=== PATIENT | male | born 1990 | race Caucasian/White ===

== ENCOUNTER 2017-09-20 19:00 | Emergency (ER) | payer OTHER ==
[2017-09-20 19:09] VITALS: BP 135/78
[2017-09-20] MEDS ORDERED: CYCLOBENZAPRINE 10 MG Prepack 2 PO PRN (19:47)
[2017-09-20] MEDS ORDERED: HYDROcod/ACET 5/325 Prepack 6 PO STA (19:47)
--- NOTE | 2017-09-20 19:49 | ED Physician Documentation ---
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 There is no weakness, numbness, or tingling of any extremity and no headache.) Review of Systems Constitutional: denies: Fever, Chills Cardiac: denies: Chest pain / pressure, Palpitations Respiratory: denies: Dyspnea, Cough PD PAST MEDICAL HISTORY - Past Medical History Past Medical History: No - Past Surgical History Past Surgical History: No - Present Medications Home Medications: Ambulatory Orders Medication Instructions Recorded Confirmed Cyclobenzaprine [Flexeril] 10 mg PO TID PRN #20 tablet 09/20/17 HYDROcod/ACETAM 5/325 [[place] 5/325] 1 - 2 ea PO Q6H PRN #15 tablet 09/20/17 - Allergies Allergies/Adverse Reactions: Allergies Allergy/AdvReac Type Severity Reaction Status Date / Time No Known Drug Allergies Allergy Verified 09/20/17 19:08 - Social History Does the pt smoke?: Yes Smoking Status: Current every day smoker Does the pt drink ETOH?: Yes ETOH Use: Liquor Does the pt have substance abuse?: No - Immunizations Immunizations are current?: Yes - POLST Patient has POLST: No PD ED PE NORMAL - Vitals Vital signs reviewed: Yes - General General: Alert and oriented X 3, No acute distress - HEENT HEENT: PERRL, EOMI - Neck Neck: No bony TTP, Other (TTP over left SCM and pain with left neck rotation.) - Cardiac Cardiac: RRR, No murmur - Respiratory Respiratory: No respiratory distress, Clear bilaterally - Abdomen Abdomen: Non tender - Back Back: No spinal TTP, Other (TTP Left parathoracic muscles) - Neuro Neuro: Alert and oriented X 3, Normal speech - Psych Psych: Normal mood, Normal affect Results - Vitals Vitals: Vital Signs - 24 hr 09/20/17 19:05 Temperature 37.7 C H Heart Rate 80 Respiratory 18 Rate Blood Pressure 135/78 H O2 Saturation 100 Oxygen O2 Source Room air Departure - Departure Disposition: 01 Home, Self Care Clinical Impression: Neck muscle strain Qualifiers: Encounter type: initial encounter Qualified Code(s): S16.1XXA - Strain of muscle, fascia and tendon at neck level, initial encounter Back strain Qualifiers: Encounter type: initial encounter Qualified Code(s): S39.012A - Strain of muscle, fascia and tendon of lower back, initial encounter Condition: Good Record reviewed to determine appropriate education?: Yes Instructions: ED Neck Back Pain General Prescriptions: Cyclobenzaprine [Flexeril] 10 mg PO TID PRN #20 tablet PRN Reason: Pain HYDROcod/ACETAM 5/325 [[place] 5/325] 1 - 2 ea PO Q6H PRN #15 tablet PRN Reason: Pain Comments: Call your doctor to arrange a follow-up appointment, make the next available appointment. In the interim, return anytime if worse or if new symptoms develop. Your blood pressure was elevated today on check into the emergency department. This does not mean that you have hypertension, it is a common phenomenon to come to the emergency department and have elevated blood pressure. I recommend that you see your primary care physician within the week to have it rechecked when you are feeling better. Do not drink or drive while taking narcotic pain medication. Note that many narcotic pain relievers also contain Tylenol/acetaminophen. Please ensure that your total dose of acetaminophen from all sources does not exceed 3 g (3000 mg) per day. You may get constipated while on this medication. Take a stool softener such as Colace twice a day while you are on it. Also add an [id number] laxative such as senna or MiraLAX on any day that you do not have a bowel movement. If you received a narcotic pain medication or sedative while in the emergency department, do not drive for the next 24 hours.
== END 2017-09-20 20:04 | disposition home or self-care (01) ==
LOC: ED 19:00
DX: S16.1XXA Strain of muscle, fascia and tendon at neck level, initial encounter (principal); S39.012A Strain of muscle, fascia and tendon of lower back, initial encounter; X50.0XXA Overexertion from strenuous movement or load, initial encounter; Y92.59 Other trade areas as the place of occurrence of the external cause; Y99.0 Civilian activity done for income or pay; R03.0 Elevated blood-pressure reading, without diagnosis of hypertension; F17.200 Nicotine dependence, unspecified, uncomplicated
CPT/HCPCS: 99283

== ENCOUNTER 2017-10-08 19:41 | Emergency (ER) | payer OTHER ==
--- NOTE | 2017-10-08 21:13 | ED Physician Documentation ---
PD HPI UPPER EXT INJURY - Stated complaint Stated Complaint: L SHOULDER PX - Chief complaint Chief Complaint: Ext Problem - History obtained from History obtained from: Patient - History of Present Illness Location: Left, Shoulder Type of injury: Other (denies injury) Timing - onset: How many weeks ago (3) Timing - details: Gradual onset Associated symptoms: No: Weakness, Numbness, Tingling, Swelling, Discolored Recently seen: Emergency Dept - Additonal information Additional information: c/o left shoulder pain that started three weeks ago after work-related strenuous repetitive activity. at that time he was T+R from this ED, subsequently seen in f/u by PMD. he says symptoms had steadily improved until yesterday when he awoke to find they had suddenly returned, manifest as left upper back pain that is worse with movement of left shoulder. He does not recall recent unusual strenuous or repetitive activity. He called PMD earlier today and soonest appointment is end of next week. He is out if the medications prescribed on last visit. Review of Systems Respiratory: denies: Dyspnea Musculoskeletal: reports: Back pain (left upper parathoracic). denies: Neck pain, Extremity pain, Joint pain (pain is exacerbated with movement of left shoulder, but no shoulder pain per se), Extremity swelling Neurologic: denies: Focal weakness, Numbness PD PAST MEDICAL HISTORY - Past Medical History Past Medical History: Yes Other Past Medical History: Torn rotator cuff L side; Torn tendon L shoulder - Past Surgical History Past Surgical History: No - Present Medications Home Medications: Ambulatory Orders Medication Instructions Recorded Confirmed Cyclobenzaprine [Flexeril] 10 mg PO TID PRN #20 tablet 10/08/17 HYDROcod/ACETAM 5/325 [[place] 5/325] 1 - 2 ea PO Q6H PRN #15 tablet 10/08/17 Ibuprofen 400 mg PO .FREQ 10/08/17 10/08/17 - Allergies Allergies/Adverse Reactions: Allergies Allergy/AdvReac Type Severity Reaction Status Date / Time No Known Drug Allergies Allergy Verified 10/08/17 19:49 - Social History Does the pt smoke?: Yes Smoking Status: Current every day smoker Does the pt drink ETOH?: Yes Does the pt have substance abuse?: No - Immunizations Immunizations are current?: Yes - POLST Patient has POLST: No PD ED PE NORMAL - Vitals Vital signs reviewed: Yes - General General: Alert and oriented X 3, No acute distress, Well developed/nourished - Neck Neck: Supple, no meningeal sign, No bony TTP - Respiratory Respiratory: No respiratory distress, Clear bilaterally - Back Back: No spinal TTP, Other (mild TTP left upper parathoracic region without bony tenderness) - Derm Derm: No rash - Extremities Extremities: No tenderness to palpate, Normal ROM s pain - Neuro Neuro: No motor deficit, No sensory deficit Results - Vitals Vitals: Oxygen O2 Source Room air PD MEDICAL DECISION MAKING - ED course Complexity details: reviewed old records, considered differential, d/w patient Departure - Departure Disposition: Home, Self Care Clinical Impression: Left shoulder strain Qualifiers: Encounter type: initial encounter Qualified Code(s): S46.912A - Strain of unspecified muscle, fascia and tendon at shoulder and upper arm level, left arm , initial encounter Condition: Good Instructions: ED Shoulder Pain [facility] Prescriptions: Cyclobenzaprine [Flexeril] 10 mg PO TID PRN #20 tablet PRN Reason: Spasms HYDROcod/ACETAM 5/325 [[place] 5/325] 1 - 2 ea PO Q6H PRN #15 tablet PRN Reason: Pain Comments: Follow up with your primary care physician as scheduled next week Discharge Date/Time: 10/08/17 21:55
[2017-10-08] MEDS ORDERED: HYDROcod/ACET 5/325 Prepack 6 PO STA (21:33)
[2017-10-08] MEDS ORDERED: CYCLOBENZAPRINE 10 MG Prepack 2 PO STA (21:33)
[2017-10-08 21:55] VITALS: BP 131/76
== END 2017-10-08 21:55 | disposition home or self-care (01) ==
LOC: ED 19:41
DX: S46.912A Strain of unspecified muscle, fascia and tendon at shoulder and upper arm level, left arm, initial encounter (principal); F17.200 Nicotine dependence, unspecified, uncomplicated; X50.9XXA Other and unspecified overexertion or strenuous movements or postures, initial encounter; Y99.0 Civilian activity done for income or pay
CPT/HCPCS: 99283

== ENCOUNTER 2017-10-21 17:32 | Emergency (ER) | payer OTHER ==
--- NOTE | 2017-10-21 18:59 | ED Physician Documentation ---
PD HPI NECK PAIN - Stated complaint Stated Complaint: LT SHOUL/NECK PX - Chief complaint Chief Complaint: Ext Problem - History obtained from History obtained from: Patient - History of Present Illness Timing - onset: How many weeks ago (6) Timing - duration: Weeks (6) Timing - details: Gradual onset, Still present Location: Mid, Lower, Left (left side of neck and left suprascapular area. Mostly hurting in shoulder then radiated to trapezius area of neck. Hurts with shoulder ROM. Radiates to left arm.) Quality: Pain, Aching Associated symptoms: No: Weakness, Numbness Improves with: Rest Worsened by: Movement (mostly of shoulder, some of neck.) Contributing factors: Lifting. No: Trauma Similar symptoms before: Has not had sx before Recently seen: Not recently seen (did not have insurance; just got new insurance and has first appt with PMD next week.) Review of Systems Constitutional: denies: Fever, Chills Skin: denies: Rash, Lesions Neurologic: denies: Focal weakness, Numbness PD PAST MEDICAL HISTORY - Past Medical History Past Medical History: Yes Psych: Depression, Anxiety, Post traumatic stress disorder - Past Surgical History Past Surgical History: No - Present Medications Home Medications: Ambulatory Orders Medication Instructions Recorded Confirmed Ibuprofen 400 mg PO .FREQ 10/08/17 10/08/17 Dexamethasone [Decadron] 4 mg PO DAILY #5 tablet 10/21/17 HYDROcod/ACETAM 5/325 [[place] 5/325] 1 tab PO Q6H PRN #25 tablet 10/21/17 Methocarbamol [Robaxin] 500 mg PO Q6H PRN #25 tablet 10/21/17 - Allergies Allergies/Adverse Reactions: Allergies Allergy/AdvReac Type Severity Reaction Status Date / Time No Known Drug Allergies Allergy Verified 10/21/17 17:53 - Social History Does the pt smoke?: Yes Smoking Status: Current every day smoker Does the pt drink ETOH?: Yes Does the pt have substance abuse?: No - Immunizations Immunizations are current?: Yes - POLST Patient has POLST: No PD ED PE NORMAL - Vitals Vital signs reviewed: Yes - General General: Alert and oriented X 3, No acute distress, Well developed/nourished - Neck Neck: Supple, no meningeal sign, No bony TTP, No adenopathy - Cardiac Cardiac: RRR, No murmur - Respiratory Respiratory: Clear bilaterally - Derm Derm: Normal color, Warm and dry - Neuro Neuro: Alert and oriented X 3, No motor deficit, No sensory deficit, Normal speech Results - Vitals Vitals: Oxygen O2 Source Room air PD MEDICAL DECISION MAKING - ED course Complexity details: considered differential, d/w patient Departure - Departure Disposition: 01 Home, Self Care Clinical Impression: Neck pain, acute, Cervical radicular pain Condition: Stable Record reviewed to determine appropriate education?: Yes Instructions: ED Neck Back Pain General, ED Cervical Radiculopathy Follow-Up: Quin Huizar MD [Primary Care Provider] - Todd Fierro MD [Provider Admit Priv/Credential] - Prescriptions: Dexamethasone [Decadron] 4 mg PO DAILY #5 tablet HYDROcod/ACETAM 5/325 [[place] 5/325] 1 tab PO Q6H PRN #25 tablet PRN Reason: Pain Methocarbamol [Robaxin] 500 mg PO Q6H PRN #25 tablet PRN Reason: Spasms Comments: Reduce stress on the shoulder without heavy lifting, push pull, overhead reaching. Use a sling that you have as needed for comfort. Continue the ibuprofen to 3 times a day. Add Decadron daily for 5 days which is a stronger anti-inflammatory. Robaxin as a muscle relaxant for spasms and stiffness. Add hydrocodone if needed for worse pain. Follow-up with your new primary care as scheduled. You could also call the orthopedics office and see if they would take referral from the ER if they need it through the primary care. Discharge Date/Time: 10/21/17 20:28
[2017-10-21] MEDS ORDERED: METHOCARBAMOL 500 MG TABLET PO STA (19:35)
[2017-10-21] MEDS ORDERED: HYDROcod/ACET 5/325 Prepack 6 PO STA (19:35)
[2017-10-21] MEDS ORDERED: ACETAMINOPHEN 325 MG TABLET PO STA (19:35)
[2017-10-21] MEDS ORDERED: DEXAMETHASONE 10 MG/ML VIAL PO STA (19:35)
[2017-10-21 20:08] VITALS: BP 122/78
== END 2017-10-21 20:28 | disposition home or self-care (01) ==
LOC: ED 17:32
DX: M54.2 Cervicalgia (principal); M54.12 Radiculopathy, cervical region; F17.200 Nicotine dependence, unspecified, uncomplicated
CPT/HCPCS: 99283; A9270

== ENCOUNTER 2018-01-09 11:33 | Outpatient (CLI) | payer OTHER ==
--- NOTE | 2018-01-10 10:22 | MRI Report ---
EXAM: MRI CERVICAL SPINE WITHOUT CONTRAST EXAM DATE: 01/09/2018 12:11 PM. CLINICAL HISTORY: Chronic left-sided neck, shoulder and arm pain. COMPARISONS: None. TECHNIQUE: Multiplanar, multisequence T1-weighted and fluid-sensitive sequences of the cervical spine without contrast. Other: None. FINDINGS: Neurologic Structures: The visualized posterior fossa structures are unremarkable. No signal abnormal ity in the visualized spinal cord. Alignment: Normal cervical vertebral body alignment. No spondylolisthesis. Bone Marrow: No acute fracture. No destructive bone lesion. Small fatty endplate changes at the infer ior aspect of C2 and C3. Chronic appearing Schmorl's node at the C3 inferior endplate. Interspace Levels/Facets: C1-C2: Unremarkable. C2-C3: Unremarkable. C3-C4: Annular disk bulge. Broad-based bilateral paracentral and subarticular zone disk protrusions a nd osteophyte formation resulting in mild bilateral subarticular zone stenosis. C4-C5: Unremarkable. C5-C6: Unremarkable. C6-C7: Unremarkable. C7-T1: Unremarkable. Musculature: Normal. No edema or fatty atrophy. Other: The paravertebral and prevertebral soft tissues are normal. IMPRESSION: 1. C3-C4 small disk protrusions and osteophyte formation resulting in mild bilateral subarticular zon e stenosis. [facility] Referring Provider Line: [phone] SITE ID: [id number]
== END 2018-01-09 11:34 | disposition home or self-care (01) ==
LOC: DI 11:33
PROVIDERS: ATTEND Orthopaedic Surgery
DX: M50.21 Other cervical disc displacement, high cervical region (principal); M25.78 Osteophyte, vertebrae
CPT/HCPCS: 72141

== ENCOUNTER 2018-02-14 19:48 | Emergency (ER) | payer OTHER ==
--- NOTE | 2018-02-14 20:19 | ED Physician Documentation ---
PD HPI ABD PAIN - Stated complaint Stated Complaint: MALE - Chief complaint Chief Complaint: Abd Pain - History obtained from History obtained from: Patient - History of Present Illness Timing - onset: Other (He had a GI illness over the last couple days with vomiting and diarrhea but starting yesterday had rectal pain. He has a remote history of hemorrhoids and he has had slight rectal bleeding.) Review of Systems Constitutional: reports: Reviewed and negative Cardiac: reports: Reviewed and negative Respiratory: reports: Reviewed and negative PD PAST MEDICAL HISTORY - Past Medical History GI: Hemorrhoids Psych: Depression, Anxiety, Post traumatic stress disorder - Past Surgical History Past Surgical History: No - Present Medications Home Medications: Ambulatory Orders Medication Instructions Recorded Confirmed Ibuprofen 400 mg PO .FREQ 10/08/17 10/08/17 HYDROcod/ACETAM 5/325 [[place] 5/325] 1 - 2 ea PO Q6H PRN #7 tablet 02/14/18 Hydrocortisone Acetate [Anucort-Hc] 25 mg RC QID #30 supp.rect 02/14/18 - Allergies Allergies/Adverse Reactions: Allergies Allergy/AdvReac Type Severity Reaction Status Date / Time No Known Drug Allergies Allergy Verified 02/14/18 20:01 - Social History Does the pt smoke?: Yes Smoking Status: Current every day smoker Does the pt drink ETOH?: Yes Does the pt have substance abuse?: No - Immunizations Immunizations are current?: Yes - POLST Patient has POLST: No PD ED PE NORMAL - Vitals Vital signs reviewed: Yes - General General: Alert and oriented X 3, No acute distress - Abdomen Abdomen: Normal bowel sounds, Soft, Non tender - Rectal Rectal: Other (He has a thrombosed hemorrhoid inferiorly, there is evidence of a little bit of bleeding but it is not all the way expressed.) - Neuro Neuro: Alert and oriented X 3, Normal speech Results - Vitals Vitals: Vital Signs - 24 hr 02/14/18 19:57 Temperature 36.8 C Heart Rate 77 Respiratory 20 Rate Blood Pressure 133/87 H O2 Saturation 100 Oxygen O2 Source Room air Procedures - General procedure General procedure: After verbal informed consent the rectum was prepped with iodine and then locally infiltrated with lidocaine at the base of the hemorrhoid and then tiny incision was made and the clot was expressed with minimal bleeding PD MEDICAL DECISION MAKING - Sepsis Event Vital Signs: Vital Signs - 24 hr 02/14/18 19:57 Temperature 36.8 C Heart Rate 77 Respiratory 20 Rate Blood Pressure 133/87 H O2 Saturation 100 Oxygen O2 Source Room air Departure - Departure Disposition: 01 Home, Self Care Clinical Impression: Hemorrhoid Qualifiers: Hemorrhoid type: perianal venous thrombosis Qualified Code(s): K64.5 - Perianal venous thrombosis Condition: Good Record reviewed to determine appropriate education?: Yes Instructions: ED Hemorrhoids Follow-Up: Darrell Díaz MD [Provider Admit Priv/Credential] - Within 1 week Prescriptions: HYDROcod/ACETAM 5/325 [[place] 5/325] 1 - 2 ea PO Q6H PRN #7 tablet PRN Reason: Pain Hydrocortisone Acetate [Anucort-Hc] 25 mg RC QID #30 supp.rect
[2018-02-14] MEDS ORDERED: HYDROcod/ACET 5/325 Prepack 4 PO STA (20:28)
[2018-02-14] MEDS ORDERED: LIDOCAINE 1%-EPI 1:100000 30 ML MDV ONE (20:29)
[2018-02-14 20:49] VITALS: BP 133/86
== END 2018-02-14 20:49 | disposition home or self-care (01) ==
LOC: ED 19:48
DX: K64.5 Perianal venous thrombosis (principal); F17.200 Nicotine dependence, unspecified, uncomplicated
CPT/HCPCS: 46083; 99283

== ENCOUNTER 2018-03-22 23:58 | Emergency (ER) | payer OTHER ==
--- NOTE | 2018-03-23 00:44 | ED Physician Documentation ---
PD HPI NECK PAIN - Stated complaint Stated Complaint: NECK PAIN - Chief complaint Chief Complaint: General - History obtained from History obtained from: Patient - History of Present Illness Timing - onset: How many days ago (3) Timing - details: Abrupt onset, Waxing and waning Pain level now: 6 Location: Right Quality: Pain, Spasm Associated symptoms: No: Fever, Weakness, Numbness, Incontinent of urine, Unable to urinate, Hematuria, Incontinent of stool Improves with: Rest Worsened by: Movement Contributing factors: Out of meds (had been receiving regularly prescribed hydrocodone but says he has been doing well without them recently, until injury 3 days ago) - Additional information Additional information: c/o exacerbation of neck and shoulder pain, although this had typically been left-sided. he struck back of his head 3 days ago on piece of equipment when working on friends car, aggrevated my neck injury (per patient), c/o neck pain that radiates to right shoulder and down RUE to right thumb and second digit. Review of Systems Eyes: reports: Reviewed and negative Musculoskeletal: reports: Neck pain. denies: Back pain Neurologic: reports: Head injury. denies: Focal weakness, Numbness, Headache, LOC PD PAST MEDICAL HISTORY - Past Medical History Past Medical History: Yes GI: Hemorrhoids Psych: Depression, Anxiety, Post traumatic stress disorder Musculoskeletal: Osteoarthritis, Other Other Past Medical History: neck - Past Surgical History Past Surgical History: No - Present Medications Home Medications: Ambulatory Orders Medication Instructions Recorded Confirmed Ibuprofen 400 mg PO .FREQ 10/08/17 10/08/17 Cyclobenzaprine [Flexeril] 10 mg PO TID PRN #14 tablet 03/23/18 Diclofenac Sodium [Diclofenac 100 mg PO 03/23/18 03/23/18 Sodium ER] HYDROcod/ACETAM 5/325 [[place] 5/325] 1 - 2 ea PO Q6H PRN #15 tablet 03/23/18 - Allergies Allergies/Adverse Reactions: Allergies Allergy/AdvReac Type Severity Reaction Status Date / Time No Known Drug Allergies Allergy Verified 03/23/18 00:09 - Social History Does the pt smoke?: Yes Smoking Status: Current every day smoker Does the pt drink ETOH?: Yes Does the pt have substance abuse?: No - Immunizations Immunizations are current?: Yes - POLST Patient has POLST: No PD ED PE NORMAL - Vitals Vital signs reviewed: Yes - General General: Alert and oriented X 3, No acute distress (appears uncomfortable with rotation of head to either side), Well developed/nourished - HEENT HEENT: Atraumatic, PERRL, EOMI - Neck Neck: Other (tender to palpation midline, mid-level) - Neuro Neuro: Alert and oriented X 3, 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, No motor deficit, No sensory deficit, Normal speech Eye Opening: Spontaneous Motor: Obeys Commands Verbal: Oriented GCS Score: 15 Results - Vitals Vitals: Vital Signs - 24 hr 03/23/18 03/23/18 00:05 02:58 Temperature 36.0 C L 36.5 C Heart Rate 78 73 Respiratory 20 12 Rate Blood Pressure 153/95 H 123/89 H O2 Saturation 99 99 Oxygen O2 Source Room air - Rads (name of study) CT c-spine Radiology: Prelim report reviewed, See rad report PD MEDICAL DECISION MAKING - ED course Complexity details: reviewed results, re-evaluated patient, considered differential, d/w patient - Sepsis Event Vital Signs: Vital Signs - 24 hr 03/23/18 03/23/18 00:05 02:58 Temperature 36.0 C L 36.5 C Heart Rate 78 73 Respiratory 20 12 Rate Blood Pressure 153/95 H 123/89 H O2 Saturation 99 99 Oxygen O2 Source Room air Departure - Departure Disposition: 01 Home, Self Care Clinical Impression: Cervical radicular pain Condition: Good Instructions: ED Neck Back Pain General Follow-Up: Quin Huizar MD [Primary Care Provider] - Prescriptions: Cyclobenzaprine [Flexeril] 10 mg PO TID PRN #14 tablet PRN Reason: Spasms HYDROcod/ACETAM 5/325 [[place] 5/325] 1 - 2 ea PO Q6H PRN #15 tablet PRN Reason: Pain Discharge Date/Time: 03/23/18 03:40
--- NOTE | 2018-03-23 02:35 | CT Report ---
Procedure Date: 03/23/2018 Accession Number: [id number] / [id number] Procedure: CT - Cervical Spine W/O CPT Code: FULL RESULT: EXAM: CT CERVICAL SPINE WITHOUT CONTRAST DATE: 03/23/2018 02:00 AM. HISTORY: Injury, neck tenderness. COMPARISONS: None. TECHNIQUE: Thin-section axial images were acquired of the cervical spine without contrast. Post-processing: Coronal and sagittal reformats. Other: None. In accordance with CT protocol optimization, one or more of the following dose reduction techniques were utilized for this exam: automated exposure control, adjustment of mA and/or KV based on patient size, or use of iterative reconstructive technique. FINDINGS: Alignment: No scoliosis or spondylolisthesis. Bones: No fracture or bone lesion. Interspace Levels/Facets: C1-C2: Unremarkable. C2-C3: Unremarkable. C3-C4: There is a small chronic Schmorl's node in the inferior endplate of C3. There is mild posterior endplate spurring and disk bulging. No significant canal stenosis. Bilateral uncinate hypertrophy contributes to mild bilateral foraminal narrowing. C4-C5: Unremarkable. C5-C6: Unremarkable. C6-C7: Unremarkable. C7-T1: Unremarkable. Musculature: Normal. No fatty atrophy. Other: The paravertebral and prevertebral soft tissues are unremarkable. The lung apices are clear. IMPRESSION: 1. No cervical spine fracture or subluxation. 2. At C3-C4, spondylosis is associated with mild bilateral neural foramen narrowing. [facility]
[2018-03-23 02:59] VITALS: BP 123/89
[2018-03-23] MEDS ORDERED: CYCLOBENZAPRINE 10 MG Prepack 2 PO PRN (03:21)
[2018-03-23] MEDS ORDERED: HYDROcod/ACET 5/325 Prepack 4 PO STA (03:21)
== END 2018-03-23 03:40 | disposition home or self-care (01) ==
LOC: ED 23:58
DX: M54.12 Radiculopathy, cervical region (principal)
CPT/HCPCS: 72125; 99283

== ENCOUNTER 2018-04-11 14:57 | Outpatient (CLI) | payer OTHER ==
--- NOTE | 2018-04-12 08:24 | MRI Report ---
Reason: L SHOULDER PAIN Procedure Date: 04/11/2018 Accession Number: [id number] / [id number] Procedure: MRI - Shoulder LT W/O CPT Code: FULL RESULT: EXAM: LEFT SHOULDER MRI WITHOUT CONTRAST EXAM DATE: 04/11/2018 03:44 PM. CLINICAL HISTORY: Left shoulder pain. COMPARISON: None. TECHNIQUE: Multiplanar, multisequence T1-weighted and fluid-sensitive sequences of the shoulder without contrast. Other: None. FINDINGS: Acromioclavicular Region: The acromion is type I. The acromioclavicular joint is unremarkable. The coracoacromial and coracoclavicular ligaments are intact. No subacromial/subdeltoid bursal fluid. Glenohumeral Region: No subluxation. No effusion or loose bodies. The articular cartilage is unremarkable. The glenohumeral ligaments and joint capsule are unremarkable. Bone Marrow: No fracture, marrow edema or bone lesions. Labrum: The labrum is unremarkable on this nonarthrographic study. Musculature/Rotator Cuff: The subscapularis, supraspinatus, infraspinatus, and teres minor tendons are intact. No edema or fatty atrophy. Biceps Tendon: The long head of the biceps tendon and biceps rufus are intact. Other: The subcutaneous tissues are unremarkable. IMPRESSION: No MRI abnormalities in the shoulder. [facility] MUSCULOSKELETAL RADIOLOGY SECTION
== END 2018-04-11 14:58 | disposition home or self-care (01) ==
LOC: DI 14:57
PROVIDERS: ATTEND Internal Medicine
DX: M25.512 Pain in left shoulder (principal)

== ENCOUNTER 2018-06-12 19:52 | Emergency (ER) | payer OTHER ==
[2018-06-12 20:06] VITALS: BP 137/82
--- NOTE | 2018-06-12 20:13 | ED Physician Documentation ---
PD HPI NECK PAIN - Stated complaint Stated Complaint: NECK PX - Chief complaint Chief Complaint: General - History obtained from History obtained from: Patient - History of Present Illness Timing - onset: How many days ago (2) Timing - details: Abrupt onset, Still present, Constant, Waxing and waning Pain level max: 9 Pain level now: 8 Location: Mid, Lower, Right, Left Quality: Pain, Spasm Improves with: Rest Worsened by: Movement (of neck , particularly turning to either side (rotation)) Similar symptoms before: Diagnosis (chronic neck pain, has mad multiple MRIs) Recently seen: Not recently seen - Additional information Additional information: Patient complains of exacerbation of his chronic neck pain. He has had neck pain since injury in 2007. He has had multiple MRIs of the cervical spine including it two weeks ago. This exacerbation started two days ago, when he was lifting heavy object. Review of Systems Constitutional: reports: Reviewed and negative GI: reports: Reviewed and negative : denies: Incontinent Musculoskeletal: reports: Neck pain. denies: Back pain Neurologic: denies: Focal weakness, Numbness PD PAST MEDICAL HISTORY - Past Medical History Past Medical History: Yes GI: Hemorrhoids Psych: Depression, Anxiety, Post traumatic stress disorder Musculoskeletal: Osteoarthritis, Other - Past Surgical History Past Surgical History: No - Present Medications Home Medications: Ambulatory Orders Medication Instructions Recorded Confirmed Ibuprofen 400 mg PO .FREQ 10/08/17 10/08/17 Cyclobenzaprine [Flexeril] 10 mg PO TID PRN #20 tablet 06/12/18 Gabapentin 06/12/18 Meloxicam 06/12/18 06/12/18 oxyCODONE/ACET 5/325 [Percocet 5 1 - 2 each PO Q6H PRN #14 tablet 06/12/18 mg/325 mg] predniSONE [Prednisone] 40 mg PO DAILY #6 tablet 06/12/18 - Allergies Allergies/Adverse Reactions: Allergies Allergy/AdvReac Type Severity Reaction Status Date / Time No Known Drug Allergies Allergy Verified 06/12/18 20:06 - Social History Does the pt smoke?: Yes Smoking Status: Current every day smoker Does the pt drink ETOH?: Yes Does the pt have substance abuse?: No - Immunizations Immunizations are current?: Yes - POLST Patient has POLST: No PD ED PE NORMAL - Vitals Vital signs reviewed: Yes - General General: Alert and oriented X 3, No acute distress (NAD at rest, appears uncomfortable with rotation cervical spine bilaterally), Well developed/nourished - Neck Neck: No bony TTP - Neuro Neuro: Alert and oriented X 3, 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, No motor deficit, No sensory deficit, Normal speech Results - Vitals Vitals: Oxygen O2 Source Room air PD MEDICAL DECISION MAKING - ED course Complexity details: reviewed old records, considered differential, d/w patient Departure - Departure Disposition: 01 Home, Self Care Clinical Impression: Neck pain Condition: Good Instructions: ED Neck Back Pain General Follow-Up: [facility] [Provider Group] [facility] [Provider Group] Prescriptions: Cyclobenzaprine [Flexeril] 10 mg PO TID PRN #20 tablet PRN Reason: Spasms oxyCODONE/ACET 5/325 [Percocet 5 mg/325 mg] 1 - 2 each PO Q6H PRN #14 tablet PRN Reason: Pain predniSONE [Prednisone] 40 mg PO DAILY #6 tablet Discharge Date/Time: 06/12/18 20:46
[2018-06-12] MEDS ORDERED: oxyCODONE/ACET 5/325 Prepack 4 PO STA (20:36)
[2018-06-12] MEDS ORDERED: CYCLOBENZAPRINE 10 MG Prepack 2 PO PRN (20:36)
[2018-06-12] MEDS ORDERED: DEXAMETHASONE 10 MG/ML VIAL PO STA (20:36)
[2018-06-12] MEDS ORDERED: CHERRY SYRUP 10 ML UDC PO ONE (20:42)
== END 2018-06-12 20:46 | disposition home or self-care (01) ==
LOC: ED 19:52
DX: M54.2 Cervicalgia (principal); F17.200 Nicotine dependence, unspecified, uncomplicated
CPT/HCPCS: 99283; A9270

== ENCOUNTER 2018-06-21 20:14 | Emergency (ER) | payer OTHER ==
[2018-06-21 20:22] VITALS: BP 136/88
[2018-06-21] MEDS ORDERED: DEXAMETHASONE 10 MG/ML VIAL PO STA (20:48)
[2018-06-21] MEDS ORDERED: LIDOCAINE PATCH 5% TOP STA (20:48)
[2018-06-21] MEDS ORDERED: CHERRY SYRUP 10 ML UDC PO ONE (20:52)
--- NOTE | 2018-06-21 20:53 | ED Physician Documentation ---
History of Present Illness - Stated complaint Stated Complaint: NECK/SHOULDER PX - Chief complaint Chief Complaint: Ext Problem - History obtained from History obtained from: Patient - History of Present Illness Timing: Chronic Pain level max: 7 Pain level now: 7 - Additonal information Additional information: Patient is a 27-year-old male with chronic neck pain, states worsening tonight. He is on meloxicam and gabapentin at home. States he had an MRI a few weeks ago but does not know the results. No recent trauma. States the steroids he was on recently were helping, but he only took them for 2-3 days. No new numbness or tingling. No fevers. No IV drug use. Better with rest and worse with movement Review of Systems Constitutional: denies: Fever, Chills Throat: denies: Sore throat GI: denies: Vomiting, Diarrhea Skin: denies: Rash Musculoskeletal: denies: Back pain Neurologic: denies: Headache PD PAST MEDICAL HISTORY - Past Medical History Past Medical History: Yes Cardiovascular: None Respiratory: None Neuro: None Endocrine/Autoimmune: None GI: Hemorrhoids : None HEENT: None Psych: Depression, Anxiety, Post traumatic stress disorder Musculoskeletal: Osteoarthritis, Other Derm: None Other Past Medical History: C3-4/5 spinal spur... - Past Surgical History Past Surgical History: No - Present Medications Home Medications: Ambulatory Orders Medication Instructions Recorded Confirmed Ibuprofen 400 mg PO .FREQ 10/08/17 10/08/17 Cyclobenzaprine [Flexeril] 10 mg PO TID PRN #20 tablet 06/12/18 Gabapentin 06/12/18 Meloxicam 06/12/18 06/12/18 oxyCODONE/ACET 5/325 [Percocet 5 1 - 2 each PO Q6H PRN #14 tablet 06/12/18 mg/325 mg] predniSONE [Prednisone] 40 mg PO DAILY #6 tablet 06/12/18 Diclofenac Epolamine [Flector] 1 each TD Q12H PRN #20 adh..patch 06/21/18 Gabapentin 600 mg PO TID #90 capsule 06/21/18 predniSONE [Deltasone] 10 mg PO [id number] #42 tab 06/21/18 - Allergies Allergies/Adverse Reactions: Allergies Allergy/AdvReac Type Severity Reaction Status Date / Time No Known Drug Allergies Allergy Verified 06/12/18 20:06 - Social History Does the pt smoke?: Yes Smoking Status: Current every day smoker Does the pt drink ETOH?: Yes Does the pt have substance abuse?: No - Immunizations Immunizations are current?: Yes - POLST Patient has POLST: No PD ED PE NORMAL - Vitals Vital signs reviewed: Yes - General General: Alert and oriented X 3, No acute distress - HEENT HEENT: Moist mucous membranes - Neck Neck: Supple, no meningeal sign, No bony TTP - Cardiac Cardiac: RRR - Respiratory Respiratory: No respiratory distress, Clear bilaterally - Back Back: No spinal TTP - Derm Derm: Warm and dry - Neuro Neuro: Alert and oriented X 3 Results - Vitals Vitals: Vital Signs - 24 hr 06/21/18 06/21/18 20:18 21:03 Temperature 36.6 C Heart Rate 82 Respiratory 16 16 Rate Blood Pressure 136/88 H O2 Saturation 100 Oxygen O2 Source Room air PD MEDICAL DECISION MAKING - ED course Complexity details: considered differential, d/w patient ED course: Patient is a 27-year-old male who presents to the emergency department with ongoing cervical radiculopathy. We discussed his current medications and he is on 600 mg of gabapentin twice a day, will increase this to 600 mg 3 times a day. He is also currently on meloxicam, a total of 30 mg daily. We will trial him on Flector patches instead as he is having gastric upset. We will also place him on a steroid taper as steroids were helping his symptoms previously. He would likely be a good candidate for interventional pain management, we will have him follow-up with his doctor for a referral. No evidence of acute fracture, epidural abscess or cauda equina. Patient counseled regarding signs and symptoms for which I believe and urgent re-evaluation would be necessary. Patient with good understanding of and agreement to plan and is comfortable going home at this time This document was made in part using voice recognition software. While efforts are made to proofread this document, sound alike and grammatical errors may occur. Patient was also trialed on a Lidoderm patch in the emergency department Departure - Departure Disposition: 01 Home, Self Care Clinical Impression: Cervical radicular pain Condition: Good Instructions: ED Cervical Radiculopathy Follow-Up: Nic Turner MD [Primary Care Provider] - Within 1 week Prescriptions: Diclofenac Epolamine [Flector] 1 each TD Q12H PRN #20 adh..patch PRN Reason: neck pain Gabapentin 600 mg PO TID #90 capsule predniSONE [Deltasone] 10 mg PO [id number] #42 tab Comments: We are going to try you on the diclofenac patches, start this tomorrow. Do not take the meloxicam while the diclofenac is in place, however the diclofenac may help your pain better. We will also increase your gabapentin to 600 mg 3 times a day. If the gabapentin is not helping your pain, your doctor may consider switching you to a different medication such as amitriptyline or Tegretol. I also believe that you would benefit from interventional pain management, such as nerve blocks for your cervical spine. This would likely be a better option for you then direct surgery. Return if you worsen. Discharge Date/Time: 06/21/18 21:05
== END 2018-06-21 21:05 | disposition home or self-care (01) ==
LOC: ED 20:14
DX: M54.12 Radiculopathy, cervical region (principal); F17.200 Nicotine dependence, unspecified, uncomplicated; Z79.899 Other long term (current) drug therapy
CPT/HCPCS: 99283; A9270

== ENCOUNTER 2018-07-04 23:05 | Emergency (ER) | payer OTHER ==
[2018-07-04] MEDS ORDERED: SODIUM CHLORIDE 0.9% 1,000 ML IV ONE (23:36)
--- NOTE | 2018-07-04 23:41 | ED Physician Documentation ---
History of Present Illness - Stated complaint Stated Complaint: MALE /STOMACH PAIN - Chief complaint Chief Complaint: General - History obtained from History obtained from: Patient - History of Present Illness Timing: How many weeks ago (1.5) Pain level max: 4 Pain level now: 0 - Additonal information Additional information: 27-year-old male with history of chronic neck pain on multiple pain medications and hemorrhoid here with complaint of reflux the past 1-1/2 weeks and diarrhea every hour since yesterday. He noted that the diarrhea had become bloody Today. He states that he has intermittent abdominal cramping when he is having the diarrhea. Review of his medication he had been discontinued from meloxicam 2 weeks ago but he still taking the Motrin and gabapentin for his chronic pain. He stated he saw his nurse practitioner yesterday and was prescribed hemorrhoid cream and Zantac.Denies any recent trauma, travel or sick contacts.Patient states he smoked but denies alcohol. He states he used to drink a lot of caffeine drinks but had decrease in amount. Review of Systems Ten Systems: 10 systems reviewed and negative Constitutional: denies: Fever, Chills, Myalgias Throat: denies: Sore throat Cardiac: denies: Chest pain / pressure GI: reports: Abdominal Pain, Diarrhea, Bloody / black stool. denies: Nausea, Vomiting, Constipation, Hematemesis Musculoskeletal: reports: Neck pain. denies: Back pain Neurologic: denies: Generalized weakness PD PAST MEDICAL HISTORY - Past Medical History Cardiovascular: None Respiratory: None Neuro: None Endocrine/Autoimmune: None GI: Hemorrhoids : None HEENT: None Psych: Depression, Anxiety, Post traumatic stress disorder Musculoskeletal: Osteoarthritis, Other Derm: None - Past Surgical History Past Surgical History: No - Present Medications Home Medications: Ambulatory Orders Medication Instructions Recorded Confirmed Hydrocodone/Acetaminophen 1 each PO Q8H PRN #3 tablet 07/05/18 [Hydrocodon-Acetaminophen 5-325] Loperamide [Imodium] PO 07/05/18 raNITIdine [Zantac] BID 07/05/18 - Allergies Allergies/Adverse Reactions: Allergies Allergy/AdvReac Type Severity Reaction Status Date / Time No Known Drug Allergies Allergy Verified 07/04/18 23:17 - Social History Does the pt smoke?: Yes Smoking Status: Current every day smoker Does the pt drink ETOH?: Yes Does the pt have substance abuse?: No - Immunizations Immunizations are current?: Yes - POLST Patient has POLST: No PD ED PE NORMAL - Vitals Vital signs reviewed: Yes - General General: Alert and oriented X 3, No acute distress, Well developed/nourished - HEENT HEENT: EOMI, Moist mucous membranes, Pharynx benign - Neck Neck: Supple, no meningeal sign - Cardiac Cardiac: RRR, No murmur - Respiratory Respiratory: No respiratory distress, Clear bilaterally - Abdomen Abdomen: Normal bowel sounds, Soft, Non tender, Non distended - 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 Rectal exam with pinkish yellowish mucoid. Guaiac positive.) - Derm Derm: Warm and dry - Extremities Extremities: No deformity - Neuro Neuro: Alert and oriented X 3 - Psych Psych: Normal mood, Normal affect Results - Vitals Vitals: Vital Signs - 24 hr 07/04/18 07/05/18 23:13 00:56 Temperature 37.4 C Heart Rate 110 H 88 Respiratory 16 16 Rate Blood Pressure 113/77 120/85 H O2 Saturation 99 100 Oxygen O2 Source Room air - Labs Labs: Laboratory Tests 07/04/18 07/04/18 00:14 00:14 WBC 13.6 H RBC 5.09 Hgb 15.4 Hct 46.2 MCV 90.9 MCH 30.3 MCHC 33.4 RDW 12.9 Plt Count 175 MPV 10.7 Neut # (Auto) Not Reportable Lymph # (Auto) Not Reportable [place] # (Auto) Not Reportable Eos # (Auto) Not Reportable Baso # (Auto) Not Reportable Absolute Nucleated RBC Not Reportable Total Counted 100 Band Neuts % (Manual) 11 H Abnorm Lymph % (Manual) 0 Nucleated RBC % Not Reportable Neutrophils # (Manual) 10.5 H Lymphocytes # (Manual) 1.4 L Monocytes # (Manual) 0.8 Eosinophils # (Manual) 1.0 H Basophils # (Manual) 0.0 Differential Comment MANUAL DIFFERENTIAL Platelet Estimate NORMAL (130-450,000) RBC Morph Micro Appear NORMAL APPEARANCE Sodium 140 Potassium 3.7 Chloride 104 Carbon Dioxide 29 Anion Gap 7.0 BUN 9 Creatinine 0.9 Estimated GFR (MDRD) 100 Glucose 83 Calcium 9.4 Total Bilirubin 0.5 AST 16 ALT 15 Alkaline Phosphatase 57 Total Protein 7.4 Albumin 4.9 Globulin 2.5 Albumin/Globulin Ratio 2.0 Lipase 20 L PD MEDICAL DECISION MAKING - ED course Complexity details: reviewed results, re-evaluated patient, considered differential (External hemorrhoid, diverticulosis, GERD, gastritis, peptic ulcer, pancreatitis, colitis, Medication side effects), d/w patient ED course: patient informed of test results and agreed to CT of the abdomen scan. 10 20 patient informed of test results CT scan. Discuss his diet. Patient requesting for pain medication to help him get through the rectal pain until he sees his primary doctor Dr. Turner on neck early next week. Discouraged patient to be on any narcotic but patient is insisting due to the pain that is keeping him awake at night. I will discharge him on a couple of hydrocodone. He was instructed to follow-up with his primary doctor for reevaluation, pain management, and referral to a general surgeon to reevaluate his hemorrhoids. Departure - Departure Disposition: Home, Self Care Clinical Impression: Rectal pain, Diarrhea due to drug Hemorrhoids Qualifiers: Hemorrhoid type: first degree Qualified Code(s): K64.0 - First degree hemorrhoids Condition: Stable Instructions: ED Diarrhea Viral, ED Diet Vomiting Diarrhea, ED Hemorrhoids Prescriptions: Hydrocodone/Acetaminophen [Hydrocodon-Acetaminophen 5-325] 1 each PO Q8H PRN #3 tablet PRN Reason: pain Comments: Take the external hemorrhoid cream that was prescribed to you by your PCP. Drink lots of water 6-8 glasses a day. Prevent constipation from narcotic pain medication by drinking lots of water, eating high-fiber food. Follow-up with your primary doctor for reevaluation of your hemorrhoid and get a referral to a general surgeon for reevaluation. If worse return to the emergency room.
[2018-07-05 00:28] LABS: BASOPHILS % (AUTO) 0.2 %; HGB - HEMOGLOBIN 15.4 g/dL (14.0-18.0); LYMPHOCYTES % (AUTO) 12.1 %; MEAN CORPUSCULAR HEMOGLOBIN 30.3 pg (27.0-31.0); MEAN CORPUSCULAR HGB CONC 33.4 g/dL (32.0-36.0); MEAN CORPUSCULAR VOLUME 90.9 fL (80.0-94.0); MEAN PLATELET VOLUME 10.7 fL (7.4-11.4); MONOCYTES % (AUTO) 7.5 %; NEUTROPHILS % (AUTO) 67.2 %; PLT - PLATELET COUNT 175 10^3/uL (130-450); RED BLOOD COUNT 5.09 10^6/uL (4.70-6.10); RED CELL DISTRIBUTION WIDTH 12.9 % (12.0-15.0); WHITE BLOOD COUNT 13.6 x10^3/uL (4.8-10.8)
[2018-07-05 00:30] LABS: ALBUMIN 4.9 g/dL (3.2-5.5); BILIRUBIN,TOTAL 0.5 mg/dL (0.2-1.0); CALCIUM 9.4 mg/dL (8.5-10.3); CREATININE 0.9 mg/dL (0.6-1.2); TOTAL PROTEIN 7.4 g/dL (6.7-8.2)
[2018-07-05 00:31] LABS: ABNORMAL LYMPHS % (MANUAL) 0 %
[2018-07-05 01:01] LABS: BAND NEUTROPHILS % (MANUAL) 11 %; DIFFERENTIAL COMMENT MANUAL DIFFERENTIAL; LYMPHOCYTES # (MANUAL) 1.4 10^3/uL (1.5-3.5); LYMPHOCYTES % (MANUAL) 10 %; MONOCYTES # (MANUAL) 0.8 10^3/uL (0.0-1.0); NEUTROPHILS # (MANUAL) 10.5 10^3/uL (1.5-6.6); NEUTROPHILS % (MANUAL) 66 %; PLATELET ESTIMATE, MANUAL NORMAL (130-450,000) (NORMAL); RBC MORPHOLOGY (MULTIPLE) NORMAL APPEARANCE (NORMAL)
[2018-07-05] MEDS ORDERED: IOVERSOL 320 100 ML VIAL IVP ONE ×2 (02:12→02:33)
--- NOTE | 2018-07-05 02:57 | CT Report ---
Reason: pain, diarrhea Procedure Date: 07/05/2018 Accession Number: [id number] / [id number] Procedure: CT - Abdomen/Pelvis W/ CPT Code: FULL RESULT: EXAM: CT ABDOMEN AND PELVIS EXAM DATE: 07/05/2018 02:32 AM. CLINICAL HISTORY: Pain, diarrhea. COMPARISONS: None. TECHNIQUE: Routine helical CT imaging was performed through the abdomen and pelvis. IV contrast: OPTI 320 100mL. Enteric contrast: No. Reconstructions: Coronal and sagittal. In accordance with CT protocol optimization, one or more of the following dose reduction techniques were utilized for this exam: automated exposure control, adjustment of mA and/or KV based on patient size, or use of iterative reconstructive technique. FINDINGS: Lung Bases: Unremarkable. Liver: Normal. No masses. Gallbladder/Bile Ducts: Unremarkable. Spleen: Normal. Pancreas: Normal. Adrenal Glands: Normal. Kidneys: Normal. No masses or hydronephrosis. Peritoneal Cavity/Bowel: Normal. No free fluid, free air or adenopathy. No masses or acute inflammatory process. The appendix is well visualized and normal. Pelvic Organs: Normal. The bladder and visualized pelvic organs are within normal limits. Vasculature: No aneurysms or other significant abnormality. Bones: No significant abnormality. Other: None. IMPRESSION: Normal abdomen and pelvis CT. RADIA
[2018-07-05 03:45] VITALS: BP 121/90
== END 2018-07-05 03:50 | disposition home or self-care (01) ==
LOC: ED 23:05
DX: K52.1 Toxic gastroenteritis and colitis (principal); K64.0 First degree hemorrhoids; F17.200 Nicotine dependence, unspecified, uncomplicated
CPT/HCPCS: 36415; 74177; 80053; 83690; 85025; 96361; 96374; 99283; Q9967

== ENCOUNTER 2018-08-02 10:50 | Emergency (ER) | payer OTHER ==
[2018-08-02 11:06] VITALS: BP 135/84
--- NOTE | 2018-08-02 13:21 | ED Physician Documentation ---
History of Present Illness - Stated complaint Stated Complaint: BILAT ARM PX - Chief complaint Chief Complaint: Ext Problem - History obtained from History obtained from: Patient - History of Present Illness Timing: Other (27-year-old gentleman with chronic nerve pain in the upper extremities on gabapentin. He recently had his dose increased and therefore ran out early pending a refill next week. No acute complaints.) Review of Systems Constitutional: reports: Reviewed and negative Throat: reports: Reviewed and negative Cardiac: reports: Reviewed and negative Respiratory: reports: Reviewed and negative PD PAST MEDICAL HISTORY - Past Medical History Cardiovascular: None Respiratory: None Neuro: None Endocrine/Autoimmune: None GI: Hemorrhoids : None HEENT: None Psych: Depression, Anxiety, Post traumatic stress disorder Musculoskeletal: Osteoarthritis, Other Derm: None - Past Surgical History Past Surgical History: No - Present Medications Home Medications: Ambulatory Orders Medication Instructions Recorded Confirmed Hydrocodone/Acetaminophen 1 each PO Q8H PRN #3 tablet 07/05/18 [Hydrocodon-Acetaminophen 5-325] Loperamide [Imodium] PO 07/05/18 raNITIdine [Zantac] BID 07/05/18 Gabapentin 3 tab PO TID #64 capsule 08/02/18 - Allergies Allergies/Adverse Reactions: Allergies Allergy/AdvReac Type Severity Reaction Status Date / Time No Known Drug Allergies Allergy Verified 08/02/18 11:06 - Social History Does the pt smoke?: Yes Smoking Status: Current every day smoker Does the pt drink ETOH?: Yes Does the pt have substance abuse?: No - Immunizations Immunizations are current?: Yes - POLST Patient has POLST: No PD ED PE NORMAL - Vitals Vital signs reviewed: Yes - General General: Alert and oriented X 3, No acute distress - Neuro Neuro: Alert and oriented X 3, Normal speech - Psych Psych: Normal mood, Normal affect Results - Vitals Vitals: Vital Signs - 24 hr 08/02/18 11:03 Temperature 36.2 C L Heart Rate 92 Respiratory 20 Rate Blood Pressure 135/84 H O2 Saturation 99 Oxygen O2 Source Room air Departure - Departure Disposition: 01 Home, Self Care Clinical Impression: Cervical radicular pain, Medication refill Condition: Good Record reviewed to determine appropriate education?: Yes Prescriptions: Gabapentin 3 tab PO TID #64 capsule Comments: Follow-up with your physician for further refills. Return for new or worsening symptoms. Your blood pressure was elevated today on check into the emergency department. This does not mean that you have hypertension, it is a common phenomenon to come to the emergency department and have elevated blood pressure. I recommend that you see your primary care physician within the week to have it rechecked when you are feeling better.
== END 2018-08-02 13:26 | disposition home or self-care (01) ==
LOC: ED 10:50
DX: G89.29 Other chronic pain (principal); M54.12 Radiculopathy, cervical region; F17.200 Nicotine dependence, unspecified, uncomplicated; Z76.0 Encounter for issue of repeat prescription; R03.0 Elevated blood-pressure reading, without diagnosis of hypertension
CPT/HCPCS: 99283

== ENCOUNTER 2018-08-04 18:22 | Emergency (ER) | payer OTHER ==
[2018-08-04 18:35] VITALS: BP 127/92
[2018-08-04] MEDS ORDERED: HYDROcod/ACET 5/325 Prepack 4 PO STA (18:42)
--- NOTE | 2018-08-04 18:43 | ED Physician Documentation ---
PD HPI BACK PAIN - Stated complaint Stated Complaint: PAIN IN NECK DOWN TO HANDS - Chief complaint Chief Complaint: Back Pain - History obtained from History obtained from: Patient - History of Present Illness Timing - onset: Other (He has chronic upper back and neck pain radiating into the arms. This is been going on for the better part of a year. He had a relatively unimpressive M MRI showing a single nerve bulge. The pain does not really corroborate to the findings on that. It is basically diffusely from the mastoids down to the mid back on both sides and radiating to the arms. It is a sharp pain and is maintained on gabapentin for it. The gabapentin is not working. He called his doctor's office who referred him to the emergency department.) Review of Systems Constitutional: denies: Fever, Chills Nose: denies: Rhinorrhea / runny nose, Congestion Cardiac: denies: Chest pain / pressure, Palpitations PD PAST MEDICAL HISTORY - Past Medical History Cardiovascular: None Respiratory: None Neuro: None Endocrine/Autoimmune: None GI: Hemorrhoids : None HEENT: None Psych: Depression, Anxiety, Post traumatic stress disorder Musculoskeletal: Osteoarthritis, Other Derm: None - Past Surgical History Past Surgical History: No - Present Medications Home Medications: Ambulatory Orders Medication Instructions Recorded Confirmed Hydrocodone/Acetaminophen 1 each PO Q8H PRN #3 tablet 07/05/18 [Hydrocodon-Acetaminophen 5-325] Loperamide [Imodium] PO 07/05/18 raNITIdine [Zantac] BID 07/05/18 Gabapentin 3 tab PO TID #64 capsule 08/02/18 - Allergies Allergies/Adverse Reactions: Allergies Allergy/AdvReac Type Severity Reaction Status Date / Time No Known Drug Allergies Allergy Verified 08/04/18 18:34 - Social History Does the pt smoke?: Yes Smoking Status: Current every day smoker Does the pt drink ETOH?: Yes Does the pt have substance abuse?: No - Immunizations Immunizations are current?: Yes - POLST Patient has POLST: No PD ED PE NORMAL - Vitals Vital signs reviewed: Yes - General General: Alert and oriented X 3, No acute distress - Neck Neck: Supple, no meningeal sign - Back Back: Other (He has basically fibromyalgia-like hypersensitivity and tenderness that is diffuse along the neck and back. He has normal upper extremity [place] tier strength, thumb extension, interossei strength bilaterally.) - Neuro Neuro: Alert and oriented X 3, Normal speech Results - Vitals Vitals: Vital Signs - 24 hr 08/04/18 18:31 Temperature 37.2 C Heart Rate 107 H Respiratory 18 Rate Blood Pressure 127/92 H O2 Saturation 100 Oxygen O2 Source Room air PD MEDICAL DECISION MAKING - ED course Complexity details: reviewed old records (10th emergency department visit for pain related complaint this year. [employer] INST[employer]ER shows multiple prescribers of narcotics.) Departure - Departure Disposition: Home, Self Care Clinical Impression: Chronic neck pain Condition: Good Record reviewed to determine appropriate education?: Yes Instructions: ED Chronic Pain Management Comments: As discussed this issue does not seem to be an emergency and chronic pain should always be treated by a single prescriber in the outpatient setting. Return for new issues. The policy of this emergency department is to not give more than 3 prescriptions for narcotics or other controlled substances in any 1 year. You have already surpassed this benchmark and we cannot prescribe narcotics for you. You are always welcome to seek emergency care here for this or new issues but there will likely be limitations in the prescription of narcotic pain medication.
== END 2018-08-04 19:09 | disposition home or self-care (01) ==
LOC: ED 18:22
DX: M54.2 Cervicalgia (principal); F17.200 Nicotine dependence, unspecified, uncomplicated
CPT/HCPCS: 99282; 99283

== ENCOUNTER 2018-09-23 23:37 | Emergency (ER) | payer OTHER ==
--- NOTE | 2018-09-24 00:02 | ED Physician Documentation ---
History of Present Illness - Stated complaint Stated Complaint: PAIN ALL OVER - Chief complaint Chief Complaint: General - History obtained from History obtained from: Patient - History of Present Illness Timing: Today Pain level max: 10 Pain level now: 10 - Additonal information Additional information: 28-year-old male with chronic "nerve pain". States he is out of his pain medication and cannot get a hold of his doctor to prescribe more pain medication. No fall. No trauma. No headache. No fevers. States sometimes steroids helped this. Nothing makes it better or worse currently Review of Systems Constitutional: denies: Fever GI: denies: Vomiting Skin: denies: Rash Musculoskeletal: reports: Neck pain (Chronic and unchanged). denies: Back pain Neurologic: denies: Focal weakness, Numbness, Headache PD PAST MEDICAL HISTORY - Past Medical History Cardiovascular: None Respiratory: None Neuro: None Endocrine/Autoimmune: None GI: Hemorrhoids : None HEENT: None Psych: Depression, Anxiety, Post traumatic stress disorder Musculoskeletal: Osteoarthritis, Other Derm: None - Past Surgical History Past Surgical History: No - Present Medications Home Medications: Ambulatory Orders Medication Instructions Recorded Confirmed Gabapentin 3 tab PO TID #64 capsule 08/02/18 09/23/18 DULoxetine [Cymbalta] 20 mg PO DAILY 08/08/18 09/23/18 Hydrocodone/Acetaminophen 1 - 2 tab PO Q6H 09/23/18 09/23/18 [Hydrocodone-Acetamin 5-325 mg] predniSONE [Prednisone] 40 mg PO DAILY #10 tablet 09/24/18 - Allergies Allergies/Adverse Reactions: Allergies Allergy/AdvReac Type Severity Reaction Status Date / Time No Known Drug Allergies Allergy Verified 09/23/18 23:42 - Social History Does the pt smoke?: Yes Smoking Status: Current every day smoker Does the pt drink ETOH?: Yes Does the pt have substance abuse?: No - Immunizations Immunizations are current?: Yes - POLST Patient has POLST: No PD ED PE NORMAL - Vitals Vital signs reviewed: Yes - General General: Alert and oriented X 3, No acute distress - HEENT HEENT: PERRL, Moist mucous membranes - Neck Neck: Supple, no meningeal sign, No bony TTP - Cardiac Cardiac: RRR - Respiratory Respiratory: No respiratory distress, Clear bilaterally - Abdomen Abdomen: Soft, Non tender, Non distended - Derm Derm: Warm and dry - Neuro Neuro: Alert and oriented X 3 - Psych Psych: Normal mood, Normal affect Results - Vitals Vitals: Vital Signs - 24 hr 09/23/18 09/24/18 23:38 00:27 Temperature 36.5 C Heart Rate 85 88 Respiratory 16 17 Rate Blood Pressure 129/78 126/82 H O2 Saturation 98 98 Oxygen O2 Source Room air PD MEDICAL DECISION MAKING - ED course Complexity details: reviewed old records, re-evaluated patient, considered differential, d/w patient ED course: 28-year-old male presents the emergency department with chief complaint of chronic pain worsening, out of his pain medications. I attempted to contact his physician, but no on-call physician is available tonight. We will give him 4 tabs of Vicodin for home. We will also place him on steroids. We will have him follow-up with his doctor for further care. Patient counseled regarding signs and symptoms for which I believe and urgent re-evaluation would be necessary. Patient with good understanding of and agreement to plan and is comfortable going home at this time This document was made in part using voice recognition software. While efforts are made to proofread this document, sound alike and grammatical errors may occur. Departure - Departure Disposition: 01 Home, Self Care Clinical Impression: Chronic neck pain Condition: Good Instructions: ED Neck Back Pain General Follow-Up: Nic Turner MD [Primary Care Provider] - Within 3 Days Prescriptions: predniSONE [Prednisone] 40 mg PO DAILY #10 tablet Comments: You were given a small supply of medication tonight. You need to contact your doctor for further medication refills. Do not drink alcohol or drive while on narcotic pain medicine. Note that many narcotic pain relievers also contain tylenol/acetaminophen. Please ensure that your total dose of acetaminophen from all sources does not exceed 3 grams (3000mg) per day. You may constipated on this medication, take a stool softener such as "Colace" twice a day while you are on it. Also recommend a wult-nto-noohsac laxative such as senna or MiraLAX any day that you do not have a bowel movement. If you received narcotic pain medication in the emergency department, do not drive or operate machinery for the next 24 hours. Discharge Date/Time: 09/24/18 00:28
[2018-09-24] MEDS: predniSONE 20 MG TABLET PO STA (00:07)
[2018-09-24] MEDS: HYDROcod/ACET 5/325 Prepack 4 PO STA (00:26)
[2018-09-24 00:27] VITALS: BP 126/82
== END 2018-09-24 00:28 | disposition home or self-care (01) ==
LOC: ED 23:37
DX: M54.2 Cervicalgia (principal); G89.29 Other chronic pain; F17.200 Nicotine dependence, unspecified, uncomplicated
CPT/HCPCS: 99282; 99283; J7512

== ENCOUNTER 2021-09-14 13:54 | Outpatient (CLI) | payer OTHER ==
--- NOTE | 2021-09-14 16:11 | XRAY Report ---
PROCEDURE: Chest 2 View X-Ray INDICATIONS: COUGH TECHNIQUE: 2 view(s) of the chest. COMPARISON: None. FINDINGS: Surgical changes and devices: None. Lungs and pleura: No pleural effusions or pneumothorax. Lungs are clear. Mediastinum: Mediastinal contours are normal. Heart size is normal. Bones and chest wall: No suspicious bony abnormalities. Soft tissues appear unremarkable. IMPRESSION: No acute cardiopulmonary abnormality. Reviewed by: Sebas Zaragoza MD on 09/14/2021 4:09 PM [facility] Approved by: Sebas Zaragoza MD on 09/14/2021 4:09 PM [facility] Station ID: [id number]
== END 2021-09-14 13:55 | disposition home or self-care (01) ==
LOC: DI.S 13:54
PROVIDERS: ATTEND Family Medicine
DX: R05.1 Acute cough (principal)

== ENCOUNTER 2023-04-01 17:00 | Outpatient (CLI) | payer OTHER | END 2023-04-01 17:01 | disposition EMS.NT | LOC: EMS 17:00 | DX: I95.9 Hypotension, unspecified (principal); R00.0 Tachycardia, unspecified; J02.9 Acute pharyngitis, unspecified; R53.83 Other fatigue ==